=== PATIENT | female | born 1975 | race Caucasian/White ===

== ENCOUNTER 2024-03-22 13:28 | Outpatient (OUT) | payer OTHER, SELFPAY ==
--- NOTE | 2024-03-22 13:35 | XR_ITS ---
The [address] [address] Patient Name: WADE LYLE MRN: [id number] date: 1975 Sex: F Assigned Patient Location: RAD Current Patient Location: [facility] Accession/Order Number: [id number] Exam Date: 03/22/2024 13:43 Report Date: 03/22/2024 14:30 At the request of: SANGEETHA GORMAN Procedure: XR finger RT min 2V PROCEDURE: XR finger RT min 2V COMPARISON: None. HISTORY: Right Thumb Strain FINDINGS: BONES:No fracture, acute abnormality, or significant arthropathy. SOFT TISSUES:Negative. No visible soft tissue swelling. EFFUSION:None visible. OTHER: Negative. XR/XR finger RT min 2V IMPRESSION: No acute fracture Electronically authenticated by: RENEE KIRK Date: 03/22/2024 14:30
== END 2024-03-22 13:29 | disposition home or self-care (01) ==
PROVIDERS: PCP Family Medicine; Visit Provider Nurse Practitioner Family
DX: S66.011A Strain of long flexor muscle, fascia and tendon of right thumb at wrist and hand level, initial encounter (principal)
CPT/HCPCS: 73140

== ENCOUNTER 2024-11-13 07:13 | Emergency (ER) | payer OTHER, SELFPAY ==
[2024-11-13 07:16] VITALS: BP 148/91; PULSE 87; TEMP 36.4; O2SAT 99; BMI 33.0
--- OUTSIDE RECORDS SUMMARY | 2024-11-13 07:24 | XMS_ITS | CCD ---
Author Organization [facility] Care Team Providers Care Size Painter Name Role Phone JESSI MANNING Referring Unavailable ZHANEREGINA Primary Care Unavailable ZHANE, DR NUNEZ Primary Care Unavailable JOSEFINA, SIMA Consulting Unavailable JOSEFINA, SIMA Admitting Unavailable JOSEFINA, SIMA Attending Unavailable ZHANE, DR NUNEZ Primary Care Unavailable ZIEBHIMANSHU, DR LEONA Lisa Consulting Unavailable JOSEFINA, SIAM Admitting Unavailable JOSEFINA, SIMA Attending Unavailable JOSEFINA, SIMA Consulting Unavailable ZHANE, DR NUNEZ Primary Care Unavailable JOSEFINA, SIMA Admitting Unavailable JOSEFINA, SIMA Attending Unavailable ZHANE, DR NUNEZ Consulting Unavailable KERRI, DR JESSI Guteirrez Admitting Unavailable ZHANE, DR NUNEZ Primary Care Unavailable KERRI, DR JESSI Gutierrez Attending Unavailable REAGAN, DR RENEE Tariq Consulting Unavailable Ana Laura Rice Unavailable Harriet Luevano Unavailable SIMA ROCHA Attending Unavailable BETSY DIXON Attending Unavailable Diann Maciel Attending Unavailable Diann Maciel Admitting Unavailable Medications Current Medications Medication Drug Class(es) Dates Sig (Normalized) Sig (Original) amLODIPine 10 mg oral tablet (11 sources) Dihydropyridine Calcium Channel Liane Start: 09-23-2023 take 1 tablet by mouth once daily Amlodipine 10 mg tablet Active 10 MG PO Daily September 23, 2023 1:00am take 1 tablet by dejah th every twenty-four hours amLODIPine Besylate 5 MG 1 tablet Orally Once a day Active lisinopril 2.5 mg oral tablet (11 sources) Angiotensin Converting Enzyme Inhibitor Start: 09-23-2023 take 1 tablet by mouth once daily Lisinopril 2.5 mg tablet Active 2.5 MG PO Daily September 23, 2023 1:00am take 1 tablet by dejah th every twenty-four hours Lisinopril 2.5 MG 1 tablet Orally Once a day Active metFORMIN hydrochloride 500 mg oral tablet (17 sources) Biguanide Start: 05-06-2024 take 1 tablet by mouth once daily Metformin 500 mg tablet Active 500 MG PO Daily May 06, 2024 8:20am Start: 09-23-2023 End: 05-06-2024 take 1 tablet by mouth twice daily at mealtime Metformin 500 mg tablet Discontinued 500 MG PO Twice daily with meals September 23, 2023 1:00am May 06, 2024 8:21am take 1 tablet by dejah every twenty-four hours metFORMIN HCl 500 MG 1 tablet with a meal Orally Once a day Active Multivitamin preparation (4 sources) Start: 09-23-2023 take 1 tablet by mouth once daily Multivitamin Active 1 TAB PO Daily September 23, 2023 1:00am Multivitamin tablet (5 sources) Start: 09-23-2023 take 1 tablet by mouth once daily Multivitamin tablet Active 1 TAB PO Daily September 23, 2023 1:00am Start: 09-23-2023 take 1 tablet by dejah once daily Multivitamin tablet Active 1 TAB PO Daily September 23, 2023 12:00am omeprazole 40 mg delayed release oral capsule (11 sources) Proton Pump Inhibitor Start: 09-23-2023 take 1 capsule by mouth once daily Omeprazole 40 mg capsule,delayed release(DR/EC) Active 40 MG PO Daily September 23, 2023 1:00am take 1 capsule by mo [facility] every twenty-four hours Omeprazole 40 MG 1 capsule Orally Once a day Active Semaglutide Base (12 sources) Start: 03-10-2024 inject 1 mL by subcutaneous injection every week Semaglutide Base Active 0.63 ML SUBCUT every week 2.52 March 10, 2024 12:00am [facility] Pre-filled Syringes using Semaglutide Base. Dispense 2.52 mL = (Four 0.63 mL pre-filled syringes) Start: 01-13-2024 End: 03-10-2024 inject 1 mL by subcutaneous injection every week Semaglutide Base Discontinued 0.63 ML SUBCUT every week 2.52 January 13, 2024 12:00am March 10, 2024 9:28am [facility] Pre-filled Syringes using Semaglutide Base. Dispense 2.52 mL = (Four 0.63 mL pre-filled syringes) Start: 01-13-2024 inject 1 mL by subcu taneous injection every week Semaglutide Base Active 0.63 ML SUBCUT every week 2.52 January 13, 2024 12:00am [facility] Pre-filled Syringes using Semaglutide Base. Dispense 2.52 mL = (Four 0.63 mL pre-filled syringes) Start: 01-13-2024 End: 01-13-2024 inject 1 mL by subcutaneous injection every week Semaglutide Base Discontinued 0.63 ML SUBCUT every week 2.52 January 13, 2024 12:00am January 13, 2024 8:17am [facility] Pre-filled Syringes using Semaglutide Base. Dispense 2.52 mL = (Four 0.63 mL pre-filled syringes) Start: 11-18-2023 End: 01-13-2024 inject 1 mL by subcutaneous injection every week Semaglutide Base Discontinued 0.5 ML SUBCUT every week 2 November 18, 2023 12:00am January 13, 2024 8:08am [facility] Pre-filled Syringes using Semaglutide Base. Dispense 2 mL = (Four 0.5 mL pre-filled syringes) Start: 11-18-2023 inject 1 mL by subcu taneous injection every week Semaglutide Base Active 0.5 ML SUBCUT every week 2 November 18, 2023 12:00am [facility] Pre-filled Syringes using Semaglutide Base. Dispense 2 mL = (Four 0.5 mL pre-filled syringes) Semaglutide Base 2.268 mg/0.63 mL (19 sources) Start: 08-25-2024 inject 1 mL by subcutaneous injection every week Semaglutide Base 2.268 mg/0.63 mL Active 0.63 ML SUBCUT every week 2.August 25, 2024 3:10pm 08/25/2024 fax with 2-[facility] Pre-filled Syringes using Semaglutide Base. Dispense 2.52 mL = (Four 0.63 mL pre-filled syringes) Start: 08-25-2024 inject 1 mL by subcu taneous injection every week Semaglutide Base 2.268 mg/0.63 mL Active 0.63 ML SUBCUT every week 2.52 August 25, 2024 2:10pm 08/25/2024 fax with [facility] Pre-filled Syringes using Semaglutide Base. Dispense 2.52 mL = (Four 0.63 mL pre-filled syringes) Start: 03-10-2024 End: 08-25-2024 inject 1 mL by subcutaneous injection every week Semaglutide Base 2.268 mg/0.63 mL Discontinued 0.63 ML SUBCUT every week 2.52 March 10, 2024 12:00am August 25, 2024 3:11pm [facility] Pre-filled Syringes using Semaglutide Base. Dispense 2.52 mL = (Four 0.63 mL pre-filled syringes) Start: 03-10-2024 End: 08-25-2024 inject 1 mL by subcutaneous injection every week Semaglutide Base 2.268 mg/0.63 mL Discontinued 0.63 ML SUBCUT every week 2.52 March 09, 2024 11:00pm August 25, 2024 2:11pm [facility] Pre-filled Syringes using Semaglutide Base. Dispense 2.52 mL = (Four 0.63 mL pre-filled syringes) Start: 03-10-2024 inject 1 mL by subcu taneous injection every week Semaglutide Base 2.268 mg/0.63 mL Active 0.63 ML SUBCUT every week 2.52 March 09, 2024 11:00pm [facility] Pre-filled Syringes using Semaglutide Base. Dispense 2.52 mL = (Four 0.63 mL pre-filled syringes) Start: 01-13-2024 End: 01-13-2024 inject 1 mL by subcutaneous injection every week Semaglutide Base 2.268 mg/0.63 mL Discontinued 0.63 ML SUBCUT every week 2.52 January 13, 2024 12:00am January 13, 2024 8:17am [facility] Pre-filled Syringes using Semaglutide Base. Dispense 2.52 mL = (Four 0.63 mL pre-filled syringes) Start: 01-13-2024 End: 03-10-2024 inject 1 mL by subcutaneous injection every week Semaglutide Base 2.268 mg/0.63 mL Discontinued 0.63 ML SUBCUT every week 2.52 January 13, 2024 12:00am March 10, 2024 9:28am [facility] Pre-filled Syringes using Semaglutide Base. Dispense 2.52 mL = (Four 0.63 mL pre-filled syringes) Start: 01-13-2024 End: 01-13-2024 inject 1 mL by subcutaneous injection every week Semaglutide Base 2.268 mg/0.63 mL Discontinued 0.63 ML SUBCUT every week 2.52 January 12, 2024 11:00pm January 13, 2024 7:17am [facility] Pre-filled Syringes using Semaglutide Base. Dispense 2.52 mL = (Four 0.63 mL pre-filled syringes) Start: 01-13-2024 End: 03-10-2024 inject 1 mL by subcutaneous injection every week Semaglutide Base 2.268 mg/0.63 mL Discontinued 0.63 ML SUBCUT every week 2.52 January 12, 2024 11:00pm March 10, 2024 8:28am [facility] Pre-filled Syringes using Semaglutide Base. Dispense 2.52 mL = (Four 0.63 mL pre-filled syringes) Completed/Discontinued Medications Medication Drug Class(es) Dates Sig (Normalized) Sig (Original) docusate sodium 100 mg oral capsule (9 sources) Start: 11-18-2023 End: 10-13-2024 take 1 capsule by mouth once daily Docusate Sodium (Colace) 100 mg capsule Discontinued 100 MG PO Daily November 18, 2023 12:00am October 13, 2024 8:25am phentermine hydrochloride 15 mg oral capsule (11 sources) Sympathomimetic Amine Anorectic Start: 08-25-2024 End: 10-26-2024 take 1 capsule by mouth once daily Phentermine 15 mg capsule Discontinued 15 MG PO Daily August 25, 2024 3:08pm October 26, 2024 4:42pm Semaglutide Base 0.6 mg/0.5 mL (5 sources) Start: 11-18-2023 End: 01-13-2024 inject 1 mL by subcutaneous injection every week Semaglutide Base 0.6 mg/0.5 mL Discontinued 0.5 ML SUBCUT every week 2 November 18, 2023 12:00am January 13, 2024 8:08am [facility] Pre-filled Syringes using Semaglutide Base. Dispense 2 mL = (Four 0.5 mL pre-filled syringes) Start: 11-18-2023 End: 01-13-2024 inject 1 mL by subcutaneous injection every week Semaglutide Base 0.6 mg/0.5 mL Discontinued 0.5 ML SUBCUT every week 2 November 17, 2023 11:00pm January 13, 2024 7:08am [facility] Pre-filled Syringes using Semaglutide Base. Dispense 2 mL = (Four 0.5 mL pre-filled syringes) Problems Active Problems Problem Classification Problem Date Documented Date Episodic/Chronic Administrative/socia l admission (20 sources) Patient encounter status; Translations: [Exercise counseling] 09-23-2023 Episodic Esophageal disorders (19 sources) Gastroesophageal reflux disease; Translations: [Gastro-esophageal reflux disease without esophagitis] 09-23-2023 Chronic Essential hypertension (19 sources) Hypertensive disorder; Translations: [Essential (primary) hypertension] 09-23-2023 Chronic Genitourinary symptoms and ill-defined conditions (4 sources) Dysuria; Translations: [Dysuria] Onset: 10-30-2024 10-30-2024 Episodic Hepatitis (2 sources) Nonalcoholic steatohepatitis; Translations: [Nonalcoholic steatohepatitis (RICH)] Chronic Other nutritional; endocrine; and metabolic disorders (9 sources) Body mass index 40+ - severely obese; Translations: [Morbid (severe) obesity due to excess calories] 09-23-2023 Chronic Other nutritional; endocrine; and metabolic disorders (5 sources) Morbid (severe) obesity due to excess calories; Translations: [Morbid obesity] 09-23-2023 Chronic Other nutritional; endocrine; and metabolic disorders (10 sources) Body mass index 30+ - obesity; Translations: [Body mass index (BMI) 36.0-36.9, adult] 03-10-2024 Chronic Other nutritional; endocrine; and metabolic disorders (6 sources) Obesity; Translations: [Obesity, unspecified] 03-10-2024 Chronic Other nutritional; endocrine; and metabolic disorders (10 sources) Body mass index (BMI) 36.0-36.9, adult; Translations: [Body Mass Index 36.0-36.9, adult] 03-10-2024 Chronic Other nutritional; endocrine; and metabolic disorders (10 sources) Obesity, unspecified; Translations: [Obesity, unspecified] 03-10-2024 Chronic Other screening for suspected conditions (not mental disorders or infectious disease) (4 sources) Encounter for screening mammogram for malignant neoplasm of breast; Translations: [ENC SCR MAMMO MALIG NEOPLASM BREAST] Onset: 12-10-2021 Episodic Other upper respiratory infections (2 sources) Acute pharyngitis, unspecified; Translations: [Acute upper respiratory infection, unspecified] Episodic Residual codes; unclassified (9 sources) H/O: endocrine disorder; Translations: [Personal history of other specified conditions] 09-23-2023 Episodic Residual codes; unclassified (10 sources) Personal history of other specified conditions; Translations: [Personal history of other endocrine, metabolic, and immunity disorders] 03-10-2024 Episodic Spondylosis; intervertebral disc disorders; other back problems (2 sources) Degeneration of lumbar intervertebral disc; Translations: [Other intervertebral disc degeneration, lumbar region] Chronic Unclassified (3 sources) LOW BACK PAIN, UNSPECIFIED; Translations: [LOW BACK PAIN, UNSPECIFIED] Onset: 07-11-2021 Unclassified (3 sources) CONTACT W/AND (SUSP) EXPOS COVID-19; Translations: [CONTACT W/AND (SUSP) EXPOS COVID-19] Onset: 02-27-2021 Past or Other Problems Problem Classification Problem Date Documented Da te Episodic/Chronic Other lower respiratory disease (1 source) Cough; Translations: [COUGH] Onset: 02-27-2021 Episodic Other upper respiratory disease (1 source) Nasal congestion; Translations: [NASAL CONGESTION] Onset: 02-27-2021 Episodic Unclassified (1 source) LOW BACK PAIN, UNSPECIFIED; Translations: [LOW BACK PAIN, UNSPECIFIED] Onset: 07-04-2021 Unclassified (1 source) CONTACT W/AND (SUSP) EXPOS COVID-19; Translations: [CONTACT W/AND (SUSP) EXPOS COVID-19] Onset: 02-21-2021 Results Test Name Value Interpretation Reference Range Facility Urine Cultureon 10-30-2024 Bacteria identified Cx Nom (U) ORGANISM: Escherichia coli (O:ESCCOL) [place] Count >100,000 Aerobic TIMOTEO Charge (NMIC56) ---- SUSCEPTIBILITY --- ORGANISM: O:ESCCOL ANTIBIOTIC INTERPRETATION TIMOTEO Amikacin S <16 Amoxacillin/K Clavulanate S <8 Ampicillin S <8 Ampicillin/Sulbactam S <4 Aztreonam S <4 Cefazolin S <2 Cefepime S <2 Ceftazidime S <1 Ceftazidime/Avibactam S <4 Ceftolozane/Tazobacta m S <2 Ceftriaxone S <1 Cefuroxime S <4 Ciprofloxacin S <0.25 Ertapenem S <0.5 Gentamicin S <2 Levofloxacin S <0.5 Meropenem S <1 Meropenem/Vaborbactam S <2 Nitrofurantoin S <32 Piperacillin/Tazobact am S <8 Tetracycline S <4 Tigecycline S <2 Tobramycin S <2 Trimethoprim/Sulfamet hoxazole S <0.5 S = SUSCEPTIBLE I = INTERMEDIATE R = RESISTANT BLANK = DATA NOT AVAILABLE, OR DRUG NOT ADVISABLE OR TESTED R* = RESISTANCE DUE TO EXTENDED SPECTRUM BETA-LACTAMASES ESBL = EXTENDED SPECTRUM BETA-LACTAMASE TFG = THYMIDINE-DEPENDENT STRAIN HARRY = BETA-LACTAMASE POSITIVE IB = INDUCIBLE BETA-LACTAMASE. APPEARS IN PLACE OF 'S' WITH SPECIES KNOWN TO POSSESS INDUCIBLE BETA-LACTAMASES. POTENTIALLY THEY MAY BECOME RESISTANT TO ALL B-LACTAM DRUGS. PERFORMED BY: [place] [address] PATHOLOGIST UNIVERSITY ADMINISTRATIVE ASSISTANT MILAGROS KULKARNI M.D. Normal [facility] Comment on above: Performed By: #### C UU #### [address] COVID Quick Testingon 2022 Result Negative [facility] Other Quick Strepon 04-17-2023 S. pyogenes Org specific cx Ql (Throat) Negative [facility] Other Quick Strep [place] [employer] Other MG MAMM SCREEN 3D MARIAELENA CADon 12-10-2021 MG MAMM SCREEN 3D MARIAELENA CAD Patient: WADE LYLE Exam Date: 12/10/2021 : 1975 Gender:F Ordering : DR REGINA PHELAN M.D. Admission #: [id number] Family : DR JESSI Ibarra CLARELilliam Order #: [id number] CLICK HERE TO VIEW EXAM RADIOLOGY REPORT PROCEDURE: MAMMOGRAM SCREENING 3D BILATERAL CAD COMPARISON: MG MAMM SCREEN MARIAELENA W CAD, 07/28/2019. INDICATIONS: Screening mammography Calculator Name NCI Breast Cancer Risk Assessment Tool 5 Year Breast Cancer Risk 0.60% Lifetime Breast Cancer Risk 8.00% Personal Breast Cancer No Personal Ovarian Cancer No Treatments None Family Cancers None LOCATION: [facility] BREAST COMPOSITION: Scattered areas fibroglandular density. FINDINGS: DIAGNOSTIC CATEGORY 1--NEGATIVE. NO CHANGE FROM COMPARISON ASSESSMENT. Scattered benign-appearing calcifications are present. RIGHT BREAST: No significant suspicious finding. LEFT BREAST: No significant suspicious finding. RECOMMENDATIONS: ROUTINE MAMMOGRAM AND CLINICAL EVALUATION IN 12 MONTHS. PLEASE NOTE: A NORMAL MAMMOGRAM DOES NOT EXCLUDE THE POSSIBILITY OF BREAST CANCER. A CLINICALLY SUSPICIOUS PALPABLE LUMP SHOULD BE BIOPSIED. Dictated by: Renee Wise MD on 12/10/2021 at 14:25 Approved by: Renee Wise MD on 12/10/2021 at 14:34 Normal [facility] Microalbumin (with Creat)on 07-05-2021 mALB 9.0 mg/dL Normal [facility] Comment on above: Result Comment: mALB reference range not established. Performed By: #### m ALBC #### [facility] [address] [place], [place] [id number] mALB/Creat Ratio 90.0 MCG/MG Normal [facility] Comment on above: Result Comment: The ADA (Diabetes Care 26:S94-S98, 2003) defines abnormalities in Albumin excretion as follows: Category Result (MCG/MG Creatinine) Normal <30 Microalbuminuria 30-299 Clinical Albuminuria > or = 300 Performed By: #### m ALBC #### [facility] [address] [place], [place] [id number] UCREA 100 mg/dL Normal 28-217 [facility] Clamp Forklift Operator Comment on above: Performed By: #### m [facility] #### [facility] [address] [facility] [employer] [phone] XR LSPINE 2_3 VIEWSon 2020 XR LSPINE 2_3 VIEWS EXAMINATION: XR LSPINE 2_3 VIEWS HISTORY: Low back pain acute lumbar and right leg pain, numbness, and tingling; no known injury COMPARISON: CT abdomen pelvis 11/20/2019 FINDINGS: BONES: No significant spondylosis, scoliosis, fracture, or visible bony lesion. DISC SPACES: Mild narrowing L4 on 5. Mild-moderate narrowing L5-S1. PARASPINOUS: Negative. No paraspinous abnormality is seen. OTHER: Negative. IMPRESSION: 1. L5-S1 mild-moderate degenerative disc disease which appears slightly progressed compared to prior study allowing for differences in technique. Disc bulging into central canal is visible on prior CT study may have progressed. Electronically authenticated by: LEONA AREVALO Date: 2021-07-04 10:35 Normal [facility] Covid-19 PCR (CVDTB)on 01-25 SARS-CoV-2 (COVID-19) RNA MARC+probe Ql (Unsp spec) Not detected Normal NOT DETECTED [facility] Comment on above: Result Comment: This test is not yet approved or cleared by the [place] FDA. When there are no FDA-approved or cleared tests available, and other criteria are met, FDA can make tests available under an emergency access mechanism called an Emergency Use Authorization (EUA). The EUA for this test is supported by the English As A Second Language Instructor of Health and Human Service's (HHS's) declaration that circumstances exist to justify the emergency use of in vitro diagnostics for the detection and/or diagnosis of the virus that causes COVID-19. This EUA will remain in effect (meaning this test can be used) for the duration of the COVID-19 declaration justifying emergency of IVDs, unless it is terminated or revoked by FDA (after which the test may no longer be used). When diagnostic testing is negative, the possibility of a false negative should be considered in the context of a patient's recent exposures and the presence of clinical signs and symptoms consistent with SARS-CoV-2. Performed By: #### C VDAGS, CVDTB #### [facility] [address] [place] [id number] Karon Calvo SYMPTOMATIC COVID-19 ANTIGEN on 02-21-2021 EUA Statement SEE BELOW Normal [facility] Comment on above: Result Comment: This test has not been FDA cleared or approved, but has been authorized by the FDA under an Emergency Use Authorization (EUA) for use by authorized laboratories certified under CLIA that meet the requirements to perform moderate or high complexity testing. This test has been authorized only for the detection of proteins from SARS-CoV-2, not for any other viruses or pathogens. The emergency use of this test is authorized for the duration of the declaration that circumstances exist justifying the authorization of emergency use of in vitro diagnostic tests for detection and/or diagnosis of Covid-19 under section 564(b)(1) of the Act, 21 U.S.C. 360bbb-3(b)(1), unless the declaration is terminated or authorization is revoked sooner. Performed By: #### C DIYA, CVDTB #### [facility] [address] [place] [address] Karon Calvo SARS-CoV-2 (COVID-19) RNA MARC+probe Ql (Unsp spec) Negative Normal NEGATIVE [facility] Comment on above: Performed By: #### C ALESHAS, CVDTB #### [facility] [address] [place] [address] Karon Calvo Cytologyon 02-25-2019 Cytology (NOTE) [id number] [facility] ANATOMIC PATHOLOGY [address] [place] [address]. [place], [place] [address] GYNECOLOGIC CYTOLOGY REPORT Patient Name: WADE LYLE MR#: [id number] Specimen #[id number] Source: 1: Cervical material, (ThinPrep vial, Imaging-assisted review) Clinical History No LMP date given: having periods Z01.419 Routine habilitation assistant exam without abnormal findings High Risk HPV DNA testing is requested if the diagnosis is ASC-US INTERPRETATION Cervical material, (ThinPrep vial, Imaging-assisted review): Specimen Adequacy: Satisfactory for evaluation. - Endocervical/transfor mation zone component present. Descriptive Diagnosis: Negative for intraepithelial lesion or malignancy. Electrode Cleaning Machine Operator: LEOLA JONES(ASCP) Electronically Signed Out 03/08/2019 [facility] Comment on above: Performed By: #### P PPVP #### [facility] [address] [place] [address] Stenocaptioner: Rivera Banda MD Vital Signs Date Time Vital Sign Value Performing Clinician Facility 10-30-2024 12:37-0400 Body height 177.8 cm [facility] 10-30-2024 12:37-0400 Body mass index (BMI) [Ratio] 34.4 kg/m2 [facility] 10-30-2024 12:37-0400 Body temperature 97.8 [degF] [facility] 10-30-2024 12:37-0400 Body weight 109.08 kg [facility] 10-30-2024 12:37-0400 Diastolic blood pressure 76 mm[Hg] [facility] 10-30-2024 12:37-0400 Heart rate 96 /min [facility] 10-30-2024 12:37-0400 Respiratory rate 18 /min [facility] 10-30-2024 12:37-0400 SaO2% (BldA) [Mass fraction] 98 % [facility] 10-30-2024 12:37-0400 Systolic blood pressure 107 mm[Hg] [facility] 10-13-2024 08:23-0400 Body height 172.09 cm [facility] 10-13-2024 08:23-0400 Body mass index (BMI) [Ratio] 36.8 kg/m2 [facility] 10-13-2024 08:23-0400 Body weight 109.2 kg [facility] 10-13-2024 08:23-0400 Diastolic blood pressure 77 mm[Hg] [facility] 10-13-2024 08:23-0400 Heart rate 89 /min [facility] 10-13-2024 08:23-0400 Respiratory rate 18 /min [facility] 10-13-2024 08:23-0400 SaO2% (BldA) [Mass fraction] 100 % [facility] 10-13-2024 08:23-0400 Systolic blood pressure 110 mm[Hg] [facility] 08-25-2024 09:17-0500 Body height 172.09 cm [facility] 08-25-2024 09:17-0500 Body mass index (BMI) [Ratio] 37.2 kg/m2 [facility] 08-25-2024 09:17-0500 Body weight 110.25 kg [facility] 08-25-2024 09:17-0500 Diastolic blood pressure 88 mm[Hg] [facility] 08-25-2024 09:17-0500 Heart rate 77 /min [facility] 08-25-2024 09:17-0500 Respiratory rate 18 /min [facility] 08-25-2024 09:17-0500 SaO2% (BldA) [Mass fraction] 99 % [facility] 08-25-2024 09:17-0500 Systolic blood pressure 127 mm[Hg] [facility] 08-25-2024 08:10-0500 Body height 172.09 cm [facility] 08-25-2024 08:10-0500 Body mass index (BMI) [Ratio] 37.3 kg/m2 [facility] 08-25-2024 08:10-0500 Body weight 110.5 kg [facility] 05-06-2024 08:18-0400 Body height 172.09 cm [facility] 05-06-2024 08:18-0400 Body mass index (BMI) [Ratio] 37.7 kg/m2 [facility] 05-06-2024 08:18-0400 Body weight 111.61 kg [facility] 05-06-2024 08:18-0400 Diastolic blood pressure 74 mm[Hg] [facility] 05-06-2024 08:18-0400 Heart rate 84 /min [facility] 05-06-2024 08:18-0400 Respiratory rate 18 /min [facility] 05-06-2024 08:18-0400 SaO2% (BldA) [Mass fraction] 100 % [facility] 05-06-2024 08:18-0400 Systolic blood pressure 117 mm[Hg] [facility] 03-10-2024 08:02-0400 Body height 172.09 cm [facility] 03-10-2024 08:02-0400 Body mass index (BMI) [Ratio] 37.5 kg/m2 [facility] 03-10-2024 08:02-0400 Body weight 111.32 kg [facility] 03-10-2024 08:02-0400 Diastolic blood pressure 87 mm[Hg] [facility] 03-10-2024 08:02-0400 Heart rate 95 /min [facility] 03-10-2024 08:02-0400 Respiratory rate 18 /min [facility] 03-10-2024 08:02-0400 SaO2% (BldA) [Mass fraction] 100 % [facility] 03-10-2024 08:02-0400 Systolic blood pressure 122 mm[Hg] [facility] 01-13-2024 07:56-0400 Body height 172.09 cm [facility] 01-13-2024 07:56-0400 Body mass index (BMI) [Ratio] 38.5 kg/m2 [facility] 01-13-2024 07:56-0400 Body weight 114.1 kg [facility] 01-13-2024 07:56-0400 Diastolic blood pressure 81 mm[Hg] [facility] 01-13-2024 07:56-0400 Heart rate 88 /min [facility] 01-13-2024 07:56-0400 Respiratory rate 18 /min [facility] 01-13-2024 07:56-0400 SaO2% (BldA) [Mass fraction] 100 % [facility] 01-13-2024 07:56-0400 Systolic blood pressure 123 mm[Hg] [facility] 11-18-2023 08:32-0400 Body height 172.09 cm [facility] 11-18-2023 08:32-0400 Body mass index (BMI) [Ratio] 39.5 kg/m2 [facility] 11-18-2023 08:32-0400 Body weight 117.02 kg [facility] 11-18-2023 08:32-0400 Diastolic blood pressure 72 mm[Hg] [facility] 11-18-2023 08:32-0400 Heart rate 88 /min [facility] 11-18-2023 08:32-0400 Respiratory rate 18 /min [facility] 11-18-2023 08:32-0400 SaO2% (BldA) [Mass fraction] 98 % [facility] 11-18-2023 08:32-0400 Systolic blood pressure 117 mm[Hg] [facility] 09-23-2023 09:38-0500 Diastolic blood pressure 82 mm[Hg] [facility] 09-23-2023 09:38-0500 Systolic blood pressure 128 mm[Hg] [facility] 09-23-2023 09:33-0500 Body height 172.09 cm [facility] 09-23-2023 09:33-0500 Body mass index (BMI) [Ratio] 40.1 kg/m2 [facility] 09-23-2023 09:33-0500 Body weight 118.84 kg [facility] 09-23-2023 09:33-0500 Heart rate 89 /min [facility] 09-23-2023 09:33-0500 Respiratory rate 18 /min [facility] 09-23-2023 09:33-0500 SaO2% (BldA) [Mass fraction] 98 % [facility] 04-17-2023 16:15-0400 Body height 177.8 cm Ana Laura Rice Other [facility] Other 04-17-2023 16:15-0400 Body mass index (BMI) [Ratio] 37.36 kg/m2 Ana Laura Rice Other [facility] Other 04-17-2023 16:15-0400 Body temperature 98.4 [degF] Ana Laura Rice Other [facility] Other 04-17-2023 16:15-0400 Body weight 118.12 kg Ana Laura Rice Other [facility] Other 04-17-2023 16:15-0400 Respiratory rate 18 /min Ana Laura Renterialey Other [facility] Other 04-17-2023 16:15-0400 SaO2% (BldA) [Mass fraction] 97 % Ana Laura Renterialey Other [facility] Other Encounters Encounter Date Encounter Type Care Provider Facility Start: 10-30-2024 End: 10-30-2024 [facility] procedure [facility] Work Phone: Start: 10-30-2024 End: 10-30-2024 ambulatory Diann M Raheem [facility] Work Phone: Start: 10-13-2024 End: 10-13-2024 ambulatory [facility] Work Phone: Start: 10-13-2024 End: 10-13-2024 Patient encounter procedure [facility] Work Phone: Start: 08-25-2024 End: 08-25-2024 ambulatory [facility] Work Phone: Start: 08-25-2024 End: 08-25-2024 Patient encounter procedure [facility] Work Phone: Start: 08-25-2024 End: 08-25-2024 ambulatory [facility] Work Phone: Start: 08-25-2024 End: 08-25-2024 Patient encounter procedure [facility] Work Phone: Start: 05-06-2024 End: 05-06-2024 ambulatory [facility] Work Phone: Start: 05-06-2024 End: 05-06-2024 Patient encounter procedure [facility] Work Phone: Start: 03-10-2024 End: 03-10-2024 ambulatory [facility] Work Phone: Start: 03-10-2024 End: 03-10-2024 Patient encounter procedure [facility] Work Phone: Start: 01-13-2024 End: 01-13-2024 ambulatory [facility] Work Phone: Start: 01-13-2024 End: 01-13-2024 Patient encounter procedure [facility] Work Phone: Start: 11-18-2023 End: 11-18-2023 ambulatory [facility] Work Phone: Start: 11-18-2023 End: 11-18-2023 Patient encounter procedure [facility] Work Phone: Start: 11-13-2023 End: 11-13-2023 ambulatory BETSY Fontenot DIXON Not Available Start: 09-23-2023 End: 09-23-2023 Patient encounter procedure [facility] Work Phone: Start: 08-24-2023 End: 08-24-2023 ambulatory Harriet Luevano Other [facility] Other Start: 08-24-2023 Telephone encounter Harriet Luevano [facility] Start: 06-17-2023 End: 06-17-2023 ambulatory SIMA ROCHA Not Available Start: 04-17-2023 End: 04-17-2023 ambulatory Ana Laura Rice Other [facility] Other Start: 04-17-2023 Office outpatient vi sit 15 minutes Ana Laura Rice [facility] Start: 12-10-2021 End: 12-11-[address] REGINA PHELAN Facility:[facility] Start: 07-04-2021 End: 07-05-[address] REGINA PHELAN Facility:[facility] Start: 06-19-[address] REGINA PHELAN Facility: [facility] Start: 02-21-2021 End: 02-22-[address] REGINA PHELAN Facility:[facility] Start: 02-25-2019 End: 02-26-2019 Patient encounter procedure JESSI MANNING [facility] Procedures Date Procedure Procedure Detail Performing Clinician Start: 02-25-2019 Screen pap by ofelia gutierrez md supv JESSI MANNING Plan of Treatment Date Care Activity Detail Author Start: 10-30-2024 End: 10-30-2024 Urine culture [facility] Payers Date Payer Category Payer Self-pay 2023 Private Health Insurance [id number] 2022 Unknown [id number] 2019 Unknown [id number] 2016 Unknown [id number] 1977 Unknown [id number] 3 1977 Unknown [id number] 3 1977 Unknown [id number] 3 1977 Unknown [id number] 3 1977 Unknown [id number] 3 1977 Unknown [id number] 59 1977 Unknown [id number] 59 1959 Unknown [id number] Unknown [place] BC/[place] [id number] Unknown [facility] [id number] Unknown [id number] 1 Social History Date Type Detail Facility Unknown if ever smoked [facility] [employer] Other Sex Assigned At Sex Assigned At Bir th [facility] [employer] Other Start: 09-23-2023 Tobacco smoking status [facility] Current some day smoker [facility] Start: 1975 Sex Assigned At Female F [facility] Start: 03-10-2024 End: 10-30-2024 Tobacco smoking status [facility] Ex-smoker (finding) [facility] Start: 08-25-2024 End: 11-01-2024 Sex Female (finding) [facility] Clinical Notes 04-17-2023 to 08-25-2024 Note Date & Type Note Facility 08-25-2024 Evaluation note Diagnosis Onset Date Resolution BMI 36.0-36.9,adult acute Jul[place] 2024 9:15am Dietary surveillance and counseling acute August 25 9:15am Esophageal reflux acute August 25, 2024 9:15am Exercise counseling acute 2024 9:15am History of prediabetes acute [facility]2024 9:15am HTN (hypertension) acute 2024 9:15am Obesity acute August 25, 2024 9:15am [facility] Work Phone: 1(502) 971-986601-30-2025 Evaluation note* Diagnosis Onset Date Resolution Status Admit Date BMI 36.0-36.9,adult acute 2024 9:15am Dietary surveillance and counseling acute August 25 9:15am Esophageal reflux acute August 25, 2024 9:15am Exercise counseling acute Julua 2024 9:15am History of prediabetes acute [facility] 2024 9:15am HTN (hypertension) acute 2024 9:15am Obesity acute August 25, 2024 9:15am BMI 36.0-36.9,adult acute October 13, 2024 8:10am Dietary surveillance and counseling acute October 13, 2024 8:10am Esophageal reflux acute September 252024 8:10am Exercise counseling acute October 13, 2024 8:10am History of prediabetes acute [facility] 2024 8:10am HTN (hypertension) acute October 13, 2024 8:10am Obesity acute October 13 8:10am [facility] Work Phone: 1(694) 653-282501-30-2025 Evaluation note* Diagnosis Onset Date Resolution Status Admit Date BMI 36.0-36.9,adult acute 2024 9:15am Dietary surveillance and counseling acute August 25 9:15am Esophageal reflux acute August 25, 2024 9:15am Exercise counseling acute 2024 9:15am History of prediabetes acute [facility] 2024 9:15am HTN (hypertension) acute 2024 9:15am Obesity acute August 25, 2024 9:15am BMI 36.0-36.9,adult acute October 13, 2024 8:10am Dietary surveillance and counseling acute October 13, 2024 8:10am Esophageal reflux acute September 252024 8:10am Exercise counseling acute October 13, 2024 8:10am History of prediabetes acute [facility] 2024 8:10am HTN (hypertension) acute October 13, 2024 8:10am Obesity acute October 13 8:10am Dysuria acute October 30 12:30pm [facility] Work Phone: 1(869) 669-610309-22-2023 Evaluation note* Encounter Date Diagnosis Assessment Notes Treatment Notes Treatment Clinical Notes Mar, Sore throat (ICD-10 - J02.9) Mar, Viral URI (ICD-10 - J06.9) Rapid strep and rapid COVID-negative. Discussed with patient exam and history is consistent with viral upper respiratory infection. Discussed viral nature of illness and typical duration of 7 to 14 days. Advised antibiotics unfortunately do not treat viral illnesses. May use symptomatic treatment such as mucinex DM, claritin, warm salt water gargles, Cepacol throat sprays or throat lozenges. May use Tylenol/ibuprofen for any pain/fever. Follow-up with PCP if not improving over the next 7 days, sooner if significantly worsening symptoms. [facility] [employer] Other chief complaint+Reason for visit Narrative* Chief Complaint NOMS -Needs New PT Q uestionnaire Reason for Visit Dietary surveillance and counseling Exercise counseling Severe obesity (BMI >= 40) Dietary surveillance and counseling Exercise counseling Severe obesity (BMI >= 40) [facility] Work Phone: chief complaint+Reason for visit Narrative* Reason for Visit Dietary surveillance and counseling Exercise counseling Severe obesity (BMI >= 40) Dietary surveillance and counseling Exercise counseling Severe obesity (BMI >= 40) [facility] Work Phone: chief complaint+Reason for visit Narrative* Chief Complaint pt. Reason for Visit Dietary surveillance and counseling Exercise counseling Severe obesity (BMI >= 40) [facility] Work Phone: evaluation [facility]No [facility] [employer] Other evaluation note* Diagnosis Onset Date Resolution Status Dietary surveillance and counseling acute Exercise counseling acute Severe obesity (BMI >= 40) a cute Dietary surveillance and counseling acute Exercise counseling acute Severe obesity (BMI >= 40) a [facility] Work Phone: Evaluation note* Diagnosis Onset Date Resolution Status Dietary surveillance and counseling acute Exercise counseling acute Severe obesity (BMI >= 40) a [facility] Work Phone: Evaluation note* Diagnosis Onset Date Resolution Status BMI 36.0-36.9,adult acute Dietary surveillance and counseling acute Esophageal reflux acute Exercise counseling acute History of prediabetes acute HTN (hypertension) acute Obesity acute BMI 36.0-36.9,adult acute Dietary surveillance and counseling acute Esophageal reflux acute Exercise counseling acute History of prediabetes acute HTN (hypertension) acute Obesity acute [facility] Work Phone: Evaluation note* Diagnosis Onset Date Resolution Status Admit Date BMI 36.0-36.9,adult acute Janua ry 2024 9:15am Dietary surveillance and counseling acute August 25 9:15am Esophageal reflux acute August 25, 2024 9:15am Exercise counseling acute Janua ry 2024 9:15am History of prediabetes acute Ja nuary 2024 9:15am HTN (hypertension) acute Januar y 2024 9:15am Obesity acute August 25, 2024 9:15am [facility] Work Phone: History general Narrative - Reported* Type Description Date Medical History Esophageal reflux Medical History HTN Medical History BORDER LINE DIABETES MELLITUS Surgical History cholecystectomy Surgical History tonsilectomy Surgical History 2 c sections Surgical History DNC Surgical History uterine ablation Hospitalization History SEE ABOVE [facility] Other Summary Purpose Family History No Family History Records Found Relationship Condition Age at Onset Recorded Date/T donavan father Unknown Heart disease Unknown Not Specified Unknown Autoimmune disorder Unknown Seizure Unknown sister Hypertension Unknown Relationship Condition Age at Onset Recorded Date/T donavan father Unknown Heart disease Unknown mother Unknown Autoimmune disorder Unknown Seizure Unknown sister Hypertension Unknown Advance Directives No Advanced Directives Records Found Advance Directive Response Recorded Date/ Time Advance Directives No August 26, 2023 3:10pm Advance Directive Response Recorded Date/ Time Advance Directives No August 26, 2023 2:10pm Chief Complaint and Reason for Visit Chief Complaint pt. WMN f/u Reason for Visit BMI 36.0-36.9,adult Dietary surveillance and counseling Esophageal reflux Exercise counseling History of prediabetes HTN (hypertension) Obesity BMI 36.0-36.9,adult Dietary surveillance and counseling Esophageal reflux Exercise counseling History of prediabetes HTN (hypertension) Obesity Chief Complaint Admit Date One on One August 25, 2024 7 :51am WMN f/u August 25, 2024 9 :15am Reason for Visit Admit Date BMI 36.0-36.9,adult August 25, 2024 9 :15am Dietary surveillance and counseling Lonnie berhane 2024 9:15am Esophageal reflux August 25, 2024 9 :15am Exercise counseling August 25, 2024 9 :15am History of prediabetes August 25 9:15am HTN (hypertension) August 25, 2024 9 :15am Obesity August 25, 2024 9 :15am Chief Complaint Admit Date One on One August 25, 2024 7 :51am WMN f/u August 25, 2024 9 :15am WMN f/u October 13, 2024 8:1 0am Reason for Visit Admit Date BMI 36.0-36.9,adult August 25, 2024 9 :15am Dietary surveillance and [facility] 9:15am Esophageal reflux August 25, 2024 9 :15am Exercise counseling August 25, 2024 9 :15am History of prediabetes August 25 9:15am HTN (hypertension) August 25, 2024 9 :15am Obesity August 25, 2024 9 :15am BMI 36.0-36.9,adult October 13, 2024 8:1 0am Dietary surveillance and counseling [facility] 2024 8:10am Esophageal reflux October 13, 2024 8:1 0am Exercise counseling October 13, 2024 8:1 0am History of prediabetes October 13, 2024 8:10am HTN (hypertension) October 13, 2024 8:1 0am Obesity October 13, 2024 8:1 0am Chief Complaint Admit Date One on One August 25, 2024 7 :51am WMN f/u August 25, 2024 9 :15am WMN f/u October 13, 2024 8:1 0am Dysuria October 30, 2024 12:3 0pm Reason for Visit Admit Date BMI 36.0-36.9,adult August 25, 2024 9 :15am Dietary surveillance and counseling Lonnie berhane 2024 9:15am Esophageal reflux August 25, 2024 9 :15am Exercise counseling August 25, 2024 9 :15am History of prediabetes August 25 9:15am HTN (hypertension) August 25, 2024 9 :15am Obesity August 25, 2024 9 :15am BMI 36.0-36.9,adult October 13, 2024 8:1 0am Dietary surveillance and counseling [facility] 2024 8:10am Esophageal reflux October 13, 2024 8:1 0am Exercise counseling October 13, 2024 8:1 0am History of prediabetes October 13, 2024 8:10am HTN (hypertension) October 13, 2024 8:1 0am Obesity October 13, 2024 8:1 0am Dysuria October 30, 2024 12:3 0pm Additional Source Comments INFORMATION SOURCE (unrecogn ized section and content) DATE CREATED AUTHOR 03/09/2019 [facility] DATE CREATED AUTHOR AUTHOR'S ORGANIZ ATION 07/06/2021 [facility] Specialist DATE CREATED AUTHOR AUTHOR'S ORGANIZ ATION 12/13/2021 [facility] DATE CREATED AUTHOR AUTHOR'S ORGANIZ ATION 11/14/2023 [facility] d[facility] Specialists EPIC DATE CREATED AUTHOR AUTHOR'S ORGANIZ ATION 11/05/2024 [facility] REASON FOR VISIT (unrecogniz ed section and content) Sinus congestion, sore throa t, ear painWMN Voicemail Care Teams (unrecognized sec tion and content) Team Status: Active Member Role Status Dates Regina Phelan MD Primary Care Provider Active Team Status: Inactive Member Role Status Dates Regina Phelan MD Primary Care Provider Active S tart: August 25, 2024 End: August 25, 2024 ELSIE Santillan Attending Provider Active S tart: August 25, 2024 End: August 25, 2024 Team Status: Inactive Member Role Status Dates Regina Phelan MD Primary Care Provider Active S tart: August 25, 2024 End: August 25, 2024 Little Cline APRN Attending Provider Active Start: August 25, 2024 End: August 25, 2024 Team Status: Active Member Role Status Dates Regina Phelan MD Primary Care Provider Active S tart: August 25, 2024 ELSIE Santillan Attending Provider Active S tart: August 25, 2024 Team Status: Inactive Member Role Status Dates Gerard Patel DO Attending Provider Active St art: September 23, 2023 End: September 23, 2023 Regina Phelan MD Primary Care Provider Active S tart: September 23, 2023 End: September 23, 2023 Team Status: Inactive Member Role Status Maurice Phelan MD Primary Care Provider Active S tart: November 18, 2023 End: November 18, 2023 Gerard Patel DO Attending Provider Active St art: November 18, 2023 End: November 18, 2023 Team Status: Inactive Member Role Status Maurice Phelan MD Primary Care Provider Active S tart: January 13, 2024 End: January 13, 2024 Gerard Patel DO Attending Provider Active St art: January 13, 2024 End: January 13, 2024 Team Status: Inactive Member Role Status Maurice Phelan MD Primary Care Provider Active S tart: March 10, 2024 End: March 10, 2024 Little Cline APRN Attending Provider Active Start: March 10, 2024 End: March 10, 2024 Team Status: Inactive Member Role Status Maurice Phelan MD Primary Care Provider Active S tart: May 06, 2024 End: May 06, 2024 Little Cline APRN Attending Provider Active Start: May 06, 2024 End: May 06, 2024 Team Status: Inactive Member Role Status Maurice Phelan MD Primary Care Provider Active S tart: October 13, 2024 End: October 13, 2024 Little Cline APRN Attending Provider Active Start: October 13, 2024 End: October 13, 2024 Team Status: Inactive Member Role Status Maurice Phelan MD Primary Care Provider Active S tart: October 30, 2024 End: October 30, 2024 Diann Maciel APRN Attending Provider Active S tart: October 30, 2024 End: October 30, 2024 Goals (unrecognized section and content) Goals may be documented in a n alternate section FOR RECORDS PERTAINING TO PATIENTS WHO ARE OR HAVE BEEN ENROLLED IN A CHEMICAL DEPENDENCY/SUBSTANCEABUSE PROGRAM, SOME INFORMATION MAY BE OMITTED. This clinical summary was aggregated from multiple sources. Caution should be exercised in using it in the provision of clinical care. This summary normalizes information from multiple sources, and as a consequence, information in this document may materially change the coding, format and clinical context of patient data. In addition, data may be omitted in some cases. CLINICAL DECISIONS SHOULD BE BASED ON THE PRIMARY CLINICAL RECORDS. [facility] provides no warranty or guarantee of the accuracy or completeness of information in this document.
[2024-11-13] MEDS: NAPROXEN 250 MG TABLET 500 MG PO (09:21)
[2024-11-13 10:01] VITALS: BP 138/87; PULSE 74; O2SAT 99
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
== END 2024-11-13 10:07 | disposition home or self-care (01) ==
PROVIDERS: Emergency Provider Emergency Medicine; PCP Family Medicine
DX: S52.501A Unspecified fracture of the lower end of right radius, initial encounter for closed fracture (principal); W50.0XXA Accidental hit or strike by another person, initial encounter
CPT/HCPCS: 29125; 73110; 99283